=== PATIENT | female | born 1995 | race Caucasian/White ===

== ENCOUNTER 2021-08-26 07:41 | Observation (INO) ==
[2021-08-26] MEDS ORDERED: DINOPROSTONE 10 MG INSERT PV ONE (08:21)
[2021-08-26] MEDS ORDERED: OXYTOCIN 30 UNITS/500 ML BAG IV PRN (08:21)
[2021-08-26] MEDS ORDERED: LACTATED RINGER'S 1,000 ML IV PRN (08:21)
[2021-08-26] MEDS ORDERED: SODIUM CHLORIDE 0.9% 250 ML IV PRN (08:56)
--- NOTE | 2021-08-26 09:08 | History & Physical Report ---
Date of Service August 26, 2021 Assessment & Plan (1) Elective induction of labor planned: (2) Obesity affecting in third trimester, antepartum: Plan: 25-year-old G1, P0 at 39 weeks and 5 days of gestation presenting to labor and delivery for scheduled induction of labor at term due to class III obesity, large for gestational age and Covid 19+. Covering well from COVID-19 with minimal symptoms and excellent oxygenation, Elevated blood pressures, asymptomatic, plan for blood work and urine test for proteinuria, heart rate reassuring, LGA per prior ultrasounds in office estimated weight of 98 percentile at 35 weeks. Currently measuring 40 to 70 g, 9 pound 7 ounces. Discussed the pros and cons of vaginal versus elective . See HPI for details. Patient desires to think about it with her and then decide. All questions were answered. (3) Large for gestational age fetus: (4) COVID-19 affecting in third trimester: Admission and Anticipated Discharge Date Admission Date: August 26, 2021 History of Present Illness Chief Complaint: Schedule induction of labor Primary Care Provider: NO PCP Patient is an 25-year-old G1, P0 at 39 weeks and 5 days of gestation who was scheduled for induction of labor week for class III obesity, large for gestational age. She was tested positive for Covid on August 18 and symptoms started next day with cough, fever, chills, muscle pains. She recovered well and now she only has mild cough. She denies contractions, leakage of fluid, nausea vomiting, fever chills, cough, sore throat, runny nose, nausea vomiting, diarrhea. She reports good movements. Her has been complicated by above and depression anxiety for which she takes Zoloft daily and feels better. GBS negative. She had ultrasound at 28 weeks and 34 weeks and estimated weight was at 98 percentile on both times. Patient is asking for options for large babies. Official ultrasound is performed this morning and estimated weight is 4270 g / 9 pounds 7 ounces. Discussed that a cog recommendation for primary if estimated weight is 5000 g or more/11 pounds. The numbers are 4500 GR/10 pounds if gestational diabetes was diagnosed. Patient had normal 50 g Glucola test at 28 weeks. Discussed the benefits and risks of versus vaginal . Discussed the risks of as a major surgery, bleeding, infection, injury to surrounding organs like bowels, bladder, ureters, increased risk of blood clots in legs and lungs, longer recovery and problems of wound healing. We also discussed the risk of shoulder dystocia with larger babies as brachial plexus nerve stretch, injury, fractures, hypoxia even . After long discussion patient wanted to think about it and then decide. Patient History Medical History (Updated 08/26/21 @ 09:06 by Jaswant Tamez MD) Anxiety GERD (gastroesophageal reflux disease) Review of Systems as per Subjective / HPI Physical Exam Constitutional: well developed, well nourished and + obese Patient is comfortable, not in acute distress. Oxygen saturation is normal. Gastrointestinal (Abdomen): Inspection/Auscultation: + abdomen distended (Gravid, [place] 9 to 10 pounds.) Genitourinary: OB Exam Monitor Tracing: + external uterine monitor used and + category I Results & Data ([facility]) Vital Signs (Past 12 Hours) Vital Signs Pulse BP Pulse Ox 08/26/21 08:50 104 H 100 08/26/21 08:45 106 H 100 08/26/21 08:02 107 H 152/76 H
[2021-08-26 09:38] LABS: Hemoglobin 12.1 g/dL (12.0-16.0); Mean Corpuscular Hemoglobin 27.4 pg (25-34); Mean Corpuscular Hgb Conc 32.7 g/dL (32-36); Mean Corpuscular Volume 83.9 fL (80-100); Mean Platelet Volume 10.2 fL (7.4-10.4); Platelet Count 143 K/uL (130-400); RDW Standard Deviation 43.1 fL (36.4-46.3); Red Blood Count 4.41 M/uL (4.2-5.4); White Blood Count 8.02 K/uL (4.8-10.8)
[2021-08-26 10:00] LABS: Protein Creatinine Ratio Urine 0.2 (0-0.2)
[2021-08-26 10:07] LABS: Albumin Level 2.4 gm/dl (3.4-5.0); BUN Creatinine Ratio 12.5 (10-20); Calcium 9.2 mg/dl (8.5-10.1); Creatinine Clr Calc Pharmacy 146.2 ml/min; Est GFR (African American) 105.8 ml/min; Est GFR (Non-African American) 91.3 ml/min; Potassium 3.7 mmol/L (3.5-5.1)
[2021-08-26 10:10] LABS: Albumin Globulin Ratio 0.6 (0.9-2); Bilirubin,Total 0.4 mg/dl (0.2-1); Globulin 3.7 gm/dl (2.5-4.0); Total Protein 6.1 gm/dl (6.4-8.2)
--- NOTE | 2021-08-26 10:11 | Ultrasound Report ---
ULTRASOUND OBSTETRICAL LIMITED CLINICAL HISTORY: Large for gestational age. Covid patient. COMPARISON STUDY: No priors. FINDINGS: Portable real-time trevino scale and color Doppler sonography of the fetus and gravid uterus i s performed. There is a single live intrauterine gestation with a heart rate of 162 bpm. Positioning is cephalic. The head circumference measures 35.65 cm corresponding to an estimated age of 41 weeks 6 days. The biparietal diameter measures 9.68 cm corresponding to an estimated age of 39 weeks 4 days. The abdominal circumference measures 37.36 cm corresponding to estimated age of 41 weeks 2 days. The femoral length measures 8.04 cm corresponding to estimated age of 41 weeks 1 day. Cumulative estimation of age is 40 weeks 3 days +/- 1 week. Estimated weight is 4274 g +/- 641 g. IMPRESSION: 1. There is a single live intrauterine gestation in cephalic positioning as above. 2. Note that this does not constitute a dedicated anatomic scan. Dictated: 08/26/2021 9:26 AM Transcribed: 08/26/2021 9:38 AM Patricia [id number] [email or web address] Electronically signed by: Kye Loja M.D. 08/26/2021 10:10 AM
[2021-08-26] MEDS ORDERED: BUTORPHANOL TARTRATE 1 MG/ML VIAL IV PRN (10:22)
--- NOTE | 2021-08-26 10:22 | Obstetrical Progress Note ---
Date of Service August 26, 2021 Assessment & Plan Admission and Anticipated Discharge Date Admission Date: August 26, 2021 Subjective Patient and her decided for trial of vaginal . Cervix is closed, soft about 50% effaced, head is high and ballotable. Discussed with the patient and her induction process with prostaglandins and what to expect. Cervidil was placed for cervical ripening. All questions were answered. Results & Data ([facility]) Vital Signs (Past 12 Hours) Vital Signs Temp Pulse Resp BP Pulse Ox 08/26/21 09:59 98 H 130/82 08/26/21 09:40 89 97 08/26/21 09:35 95 H 99 08/26/21 09:30 97 H 97 08/26/21 09:25 104 H 97 08/26/21 09:20 92 H 98 08/26/21 09:15 93 H 98 08/26/21 09:10 96 H 98 08/26/21 09:05 97 H 98 08/26/21 09:00 100 H 98 08/26/21 08:55 106 H 99 08/26/21 08:50 104 H 100 08/26/21 08:45 106 H 100 08/26/21 08:02 107 H 152/76 H 08/26/21 08:00 36.9 C 18
[2021-08-26] MEDS ORDERED: ACETAMINOPHEN 325 MG TAB PO PRN (11:27)
[2021-08-26] MEDS ORDERED: diphenhydrAMINE Capsule 25 MG CAP PO PRN (22:56)
--- NOTE | 2021-08-26 22:56 | Obstetrical Progress Note ---
Date of Service August 26, 2021 Assessment & Plan Admission and Anticipated Discharge Date Admission Date: August 26, 2021 Subjective Patient is reevaluated. She feels well with no complaints. She does not feel painful contractions, feels irregular mild cramping off and on. Cervidil was removed about an hour ago and cervix was unchanged, still closed. heart rate reassuring with category 1 strip. [place] shows mild irregular contractions every 5 to 6 minutes, patient does not feel them. Discussed the options of continuing with induction of labor, cervical ripening with prostaglandins, either Cervidil vaginal insert versus oral misoprostol. Patient and had questions about having a . We discussed again the risks of as a major surgery and benefit for the . We discussed the risks of shoulder dystocia with larger babies and limitation of ultrasound which can have an error of up to 15%. Estimated weight was 4270 g 600 g. Patient understands all and after long discussion she decided to continue with trial of labor and cervical ripening with oral misoprostol. All questions were answered. Results & Data ([facility]) Vital Signs (Past 12 Hours) Vital Signs Temp Pulse Resp BP 08/26/21 19:45 36.9 C 18 08/26/21 19:36 100 H 135/87 08/26/21 19:35 105 H 145/91 H 08/26/21 17:17 101 H 138/65 08/26/21 16:02 106 H 140/90 08/26/21 16:00 36.9 C 16 08/26/21 15:22 18 08/26/21 12:28 109 H 140/83 08/26/21 12:25 18
[2021-08-26] MEDS ORDERED: PATIENT'S ALLERGY INFO NEEDS ENTERED SCH (23:15)
[2021-08-26] MEDS: miSOPROStoL 50 MCG TAB PO SCH (23:39)
[2021-08-27] MEDS ORDERED: ONDANSETRON INJ 2 MG/ML 2 ML VIAL IV PRN (00:43)
[2021-08-27] MEDS ORDERED: ONDANSETRON INJ 2 MG/ML 2 ML VIAL ONE (00:47)
[2021-08-27] MEDS: miSOPROStoL 50 MCG TAB PO SCH ×2 (05:47→10:02)
--- NOTE | 2021-08-27 09:06 | Labor Progress Brief Note ---
Date of Service August 27, 2021 Subjective Patient comfortable in bed. Wanting to see if she can go into labor naturally. Does not desires c section. Would like to go home since not in labor and come back Wednesday when she is off COVID precautions and can be in normal labor room (ambulate more, etc). She has irregular contractions Constitutional: as per Subjective / HPI Assessment & Plan (1) Elective induction of labor planned: (2) Obesity affecting in third trimester, antepartum: Plan: 25-year-old G1, P0 at 39 weeks and 5 days of gestation presenting to labor and delivery for scheduled induction of labor at term due to class III obesity, large for gestational age and Covid 19+. Patient desires to go home today and understand recommend per MFM delivery by KRZYSZTOF. Increased risk of stillbirth, oligo, distress, LGA, shoulder dystocia. Would prefer to go home and come back Wednesday (40 1/7) Understand IOL can take several days BPP prior to discharge as long as 8/8 and normal SERENITY can be discharged. Return on Wed for IOL with mohr balloon and pit Patient and partner voiced understanding and agreement with plan of care (3) Large for gestational age fetus: (4) COVID-19 affecting in third trimester: Admission and Anticipated Discharge Date Admission Date: August 26, 2021 Physical Exam Physical Exam: FHT:baseline 130, mod variability, +accels, no decls, cat I [place]: irregular contractions Cx: 1:20/-3 Results & Data ([facility]) Vital Signs (Past 12 Hours) Vital Signs Temp Pulse Resp BP 08/27/21 07:20 36.8 C 100 H 20 131/76 08/27/21 07:00 18 08/27/21 05:00 18 08/27/21 02:17 36.9 C 108 H 18 131/84 08/26/21 23:37 36.9 C 18
--- NOTE | 2021-08-27 10:53 | Ultrasound Report ---
US OB BPP w NST single HISTORY: 25 years-old Female status prior to discharge COVID Positive with . COMPARISON: Pelvic ultrasound August 26, 2021 TECHNIQUE: Multiple real-time sonographic images of the deep pelvic structures were obtained assessin g grayscale appearance and color flow for biophysical profile with nonstress test. FINDINGS: Single living intrauterine gestation in cephalic positioning. heart rate measured at 143 bpm. A FI measures 13.8 cm. Biophysical profile score of 8/8 per line servicer findings. IMPRESSION: 1. Single living intrauterine gestation with biophysical profile of 8/8. 2. SERENITY of 13.5 cm. ACT 112: Negative or not required by law. The above report was generated using voice recognition software. It may contain grammatical, syntax o r spelling errors. Electronically signed by: Sriram Jade M.D. 08/27/2021 10:51 AM
--- NOTE | 2021-08-29 22:37 | Discharge Summary ---
Date of Service August 29, 2021 Admission HPI Per Admitting Provider Patient is an 25-year-old G1, P0 at 39 weeks and 5 days of gestation who was scheduled for induction of labor week for class III obesity, large for gestational age. She was tested positive for Covid on August 18 and symptoms started next day with cough, fever, chills, muscle pains. She recovered well and now she only has mild cough. She denies contractions, leakage of fluid, nausea vomiting, fever chills, cough, sore throat, runny nose, nausea vomiting, diarrhea. She reports good movements. Her has been complicated by above and depression anxiety for which she takes Zoloft daily and feels better. GBS negative. She had ultrasound at 28 weeks and 34 weeks and estimated weight was at 98 percentile on both times. Patient is asking for options for large babies. Official ultrasound is performed this morning and estimated weight is 4270 g / 9 pounds 7 ounces. Discussed that a cog recommendation for primary if estimated weight is 5000 g or more/11 pounds. The numbers are 4500 GR/10 pounds if gestational diabetes was diagnosed. Patient had normal 50 g Glucola test at 28 weeks. Discussed the benefits and risks of versus vaginal . Discussed the risks of as a major surgery, bleeding, infection, injury to surrounding organs like bowels, bladder, ureters, increased risk of blood clots in legs and lungs, longer recovery and problems of wound healing. We also discussed the risk of shoulder dystocia with larger babies as brachial plexus nerve stretch, injury, fractures, hypoxia even . After long discussion patient wanted to think about it and then decide. Hospital Course (1) Elective induction of labor planned: (2) Obesity affecting in third trimester, antepartum: 25-year-old G1, P0 at 39 weeks and 5 days of gestation presenting to labor and delivery for scheduled induction of labor at term due to class III obesity, large for gestational age and Covid 19+. Patient desires to go home today and understand recommend per M delivery by KRZYSZTOF. Increased risk of stillbirth, oligo, distress, LGA, shoulder dystocia. Would prefer to go home and come back Wednesday (40 1/7) Understand IOL can take several days BPP prior to discharge as long as 8/8 and normal SERENITY can be discharged. Return on Fri for IOL with mohr balloon and pit Patient and partner voiced understanding and agreement with plan of care (3) Large for gestational age fetus: (4) COVID-19 affecting in third trimester:
== END 2021-08-27 12:02 | disposition home or self-care (01) ==
LOC: INTOOBSV 07:41 → 4W 07:41